=== PATIENT | male | born 1945 | race Caucasian/White ===

== ENCOUNTER 2016-12-05 22:18 | Emergency (ER) | payer OTHER ==
[~2016-12-05] VITALS: Ht 170.2 cm; Wt 89.8 kg
[~2016-12-05 22:18] MED LIST: ASPIRIN CHILDRE81 MG PO; ATORVASTATIN CA80 MG PO; GLYBURIDE5 MG PO; LISINOPRIL40 MG PO; METFORMIN500 MG PO
--- NOTE | 2016-12-05 23:03 | ED GENERAL ADULT ---
History of Present Illness General Chief Complaint: General Adult Stated Complaint: " CAN'T BREATH,SINUS VELARDE,FEEL 2 LUMPS NECK,SPO2 99" Source: patient, old records Exam Limitations: no limitations Vital Signs & Intake/Output Vital Signs & Intake/Output Vital Signs Date Time Temp Pulse Resp B/P B/P Pulse O2 O2 Flow FiO2 Mean Ox Delivery Rate 12/05 2312 Room Air 12/05 2222 97.6 73 18 168/75 99 Room Air ED Intake and Output 12/06 0000 12/05 1200 Intake Total Output Total Balance Patient 198 lb Weight Allergies Coded Allergies: codeine (Intermediate, NAUSEA 12/06/16) Reconcile Medications Aspirin (Children's Aspirin) 81 MG TAB.CHEW 1 TAB PO DAILY HEART HEALTH ( Reported) Atorvastatin Calcium (Lipitor) 80 MG TABLET 1 TAB PO DAILY CHOLESTEROL ( Reported) Doxycycline Hyclate (Vibramycin) 100 MG CAPSULE 1 CAP PO BID sinusitis Glyburide 2.5 MG TABLET 1 TAB PO BID DIABETES (Reported) Lisinopril 40 MG TABLET 1 TAB PO DAILY BP (Reported) METFORMIN HCL (Metformin) 500 MG TABLET 2 TAB PO BID DIABETES (Reported) Mometasone Furoate (Nasonex) 50 MCG SPRAY.PUMP 2 SPRAY NASB DAILY PRN sinusitis Triage Note: PT TO ED C/O SINUS CONGESTION SINCE JULY "I'VE BEEN TO 3 DOCTORS" PT STATES HE CAN'T BREATHE WHEN HE LAYS FLAT SO CAN'T SLEEP. O2 SAT 99% IN TRIAGE. PT SNIFFING CONSTANTLY. "I CAN'T BREATHE" Triage Nurses Notes Reviewed? yes HPI: Patient is a 71 year old male presents complaining of nasal congestion, feeling of swelling in his neck and difficulty breathing. Sinus congestion x 4-5 months , has been seen by his primary doctor and at the urgent care clinic. Has been on two courses of antibiotics with no significant improvement. Using a nasal spray with temporary mild improvement. This evening patient developed the symptoms of dyspnea which were new for him and prompted him to come to the emergency department for further evaluation. Head pressure and nasal congestion is severe. Denies cough, fevers, chills, chest pain. (MURIEL MCKEON,LAINEY) Past History Travel History Traveled to [place] past 21 day No Medical History Any Pertinent Medical History? see below for history Cardiovascular: hypertension, hyperlipidemia Endocrine: diabetes Surgical History Surgical History: non-contributory Psychosocial History What is your primary language Maori Tobacco Use: Quit >30 days ago ETOH Use: occasional use Illicit Drug Use: denies illicit drug use Family History Hx Contributory? No (LAINEY JOLLEY) Review of Systems Review of Systems Constitutional: Denies: chills, fever. EENTM: Reports: nasal congestion, throat swelling. Respiratory: Reports: short of breath. Denies: cough. Cardiovascular: Denies: chest pain. GI: Reports: no symptoms. Genitourinary: Reports: no symptoms. Musculoskeletal: Reports: neck pain. Denies: back pain. Skin: Reports: no symptoms. Neurological/Psychological: Reports: headache. Hematologic/Endocrine: Denies: bruising, bleeding. Immunologic/Allergic: Denies: splenectomy. (LAINEY JLOLEY) Physical Exam Physical Exam General Appearance: well developed/nourished, alert, awake, anxious Head: bilateral maxillary and frontal sinus tenderness Eyes: Bilateral: normal appearance, PERRL, EOMI. Ears, Nose, Throat: normal pharynx, hearing grossly normal, moist mucus membranes, nasal congestion Neck: normal inspection, supple, full range of motion, tenderness bilateral submandibular. No significant edema or swelling appreciable Respiratory: normal breath sounds, chest non-tender, no respiratory distress, lungs clear Cardiovascular: regular rate/rhythm Back: normal inspection, normal range of motion Extremities: normal inspection, normal capillary refill, normal range of motion Neurologic/Psych: no motor/sensory deficits, awake, alert, oriented x 3, normal gait, normal mood/affect Skin: intact, normal color, warm/dry Lymphatic: no anterior cervical savi Core Measures ACS in differential dx? Yes ASA ordered for poss ACS? No-ACS ruled out CVA/TIA Diagnosis: No Severe Sepsis Present: No Septic Shock Present: No (LAINEY JOLLEY) Progress Differential Diagnoses I considered the following diagnoses in my evaluation of the patient: Sinusitis, Contreras's angina, epiglottitis, bronchitis, pneumonia, anxiety, acute coronary syndrome, aortic dissection, carotid dissection Plan of Care: Orders Procedure Date/time Status TROPONIN LEVEL 12/05 2313 Complete CBC WITHOUT DIFFERENTIAL 12/05 2313 Complete BASIC METABOLIC PANEL 12/05 2313 Complete EKG 12/05 2313 Active Current Medications Sig/Kelton Start time Last Medication Dose Stop Time Status Admin Oxymetazoline HCl 2 SPRAY ONCE ONE 12/06 0015 UNVr 12/06 (Afrin) 12/06 0016 0016 Laboratory Tests 12/05/16 2345: Anion Gap 13, Estimated GFR 55 L, BUN/Creatinine Ratio 15.4, Glucose 177 H, Calcium 9.0, Troponin I < 0.01, CBC w Diff NO MAN DIFF REQ, RBC 4.65 L, MCV 82.1, MCH 27.9, RDW 13.5, MPV 7.6, Gran % 56.6, Lymphocytes % 22.2, Monocytes % 7.6, Eosinophils % 13.1 H, Basophils % 0.5, Absolute Granulocytes 5.2, Absolute Lymphocytes 2.0, Absolute Monocytes 0.7 H, Absolute Eosinophils 1.2, Absolute Basophils 0, PUBS MCHC 34.[address] Alcantara. 0010: Results of CT scan discussed with patient. Afrin nasal spray 2 sprays instilled in each nostril. Awaiting results of labs. Results of labs discussed with patient. Patient nontoxic appearing, lungs clear throughout, oxygen saturation 99% on room air, normal heart rate. Appears stable for discharge and outpatient follow up. (MURIEL MCKEON,LAINEY) Diagnostic Imaging: Viewed by Me: CT Scan. Discussed w/RAD: CT Scan. Radiology Impression: PATIENT: EFRAIN WALDRON PRESENT AGE: 71 PATIENT ACCOUNT NO: [id number] : 47 LOCATION: [facility] ORDERING PHYSICIAN: LAINEY MCKEON SERVICE DATE: 12/05/16 EXAM TYPE: CAT - CT NECK WO IV CONTRAST EXAMINATION: CT NECK WITHOUT CONTRAST CLINICAL INFORMATION: Feeling of submandibular fullness COMPARISON: None TECHNIQUE: Axial images obtained through the neck without IV contrast. Coronal and sagittal reformatted images are performed at CT scanner DLP: 562.95 mGy-cm FINDINGS: No mass. No lymphadenopathy. Fat planes of the neck are normal. No inflammation or fluid collections. Submandibular glands are normal and symmetric bilateral. Thyroid glands and the parotid glands are normal. No bulky lymphadenopathy. The nasopharynx, oropharynx, hypopharynx and proximal trachea are unremarkable. No prevertebral soft tissue swelling. There is vascular calcifications of the carotid arteries at the carotid artery bifurcation bilaterally. Lung apices are clear. The partially visualized intracranial structures normal. Orbits are normal. There is sinus disease with small air- fluid levels in the dependent maxillary sinuses bilateral. IMPRESSION: Normal CT of neck. Submandibular glands are symmetric and normal in size. DICTATED BY: MARTÍN COON MD DATE/TIME DICTATED:12/05/162339 IRON ERECTOR:ELMA DATE/TIME TRANSCRIBED:12/05/162339 CONFIDENTIAL, DO NOT COPY WITHOUT APPROPRIATE AUTHORIZATION. <Electronically signed in Other Vendor System> SIGNED BY: MARTÍN COON MD 12/05/162346 Initial ED EKG: normal axis, normal intervals, normal p-waves, normal QRS complex, normal sinus rhythm, no ST T wave changes (LAINEY JOLLEY) Departure Departure Time of Disposition: 51 Disposition: HOME OR SELF CARE Condition: Stable Clinical Impression Primary Impression: Maxillary sinusitis Qualifiers: Chronicity: acute Referrals: GUTIERREZ DILLON,THELMA Howe (PCP/Family) NILDA DILLON,CRISTIANE Additional Instructions: Follow up with your primary doctor or with Dr. Duran(ear, nose and throat doctor) for further evaluation. Call in the morning for appointment. Return to the ER if fevers, unable to stay hydrated or worsening of symptoms. Do not use the Afrin(oxymetazoline) for more than 2 days. Departure Forms: Customer Survey General Discharge Information Prescriptions: Current Visit Scripts Mometasone Furoate (Nasonex) 2 SPRAY NASB DAILY PRN sinusitis #1 INHAL Doxycycline Hyclate (Vibramycin) 1 CAP PO BID #14 CAP (LAINEY JOLLEY) PA/PRACTICE COORDINATOR Co-Sign Statement Statement: ED Attending supervision documentation- [X] I saw and evaluated the patient. I have also reviewed all the pertinent lab results and diagnostic results. I agree with the findings and the plan of care as documented in the PA's/PRACTICE COORDINATOR's documentation. [X] I have reviewed the ED Record and agree with the PA's/PRACTICE COORDINATOR's documentation. [] Additions or exceptions (if any) to the PAs/PRACTICE COORDINATOR's note and plan are summarized below: [] (CORNELIO DILLON,MARITZA Todd) Critical Care Note Critical Care Note Critical Care Time: non-applicable (LAINEY JOLLEY)
--- NOTE | 2016-12-05 23:47 | CT SCAN REPORT ---
EXAMINATION: CT NECK WITHOUT CONTRAST CLINICAL INFORMATION: Feeling of submandibular fullness COMPARISON: None TECHNIQUE: Axial images obtained through the neck without IV contrast. Coronal and sagittal reformatted images are performed at CT scanner DLP: 562.95 mGy-cm FINDINGS: No mass. No lymphadenopathy. Fat planes of the neck are normal. No inflammation or fluid collections. Submandibular glands are normal and symmetric bilateral. Thyroid glands and the parotid glands are normal. No bulky lymphadenopathy. The nasopharynx, oropharynx, hypopharynx and proximal trachea are unremarkable. No prevertebral soft tissue swelling. There is vascular calcifications of the carotid arteries at the carotid artery bifurcation bilaterally. Lung apices are clear. The partially visualized intracranial structures normal. Orbits are normal. There is sinus disease with small air-fluid levels in the dependent maxillary sinuses bilateral. IMPRESSION: Normal CT of neck. Submandibular glands are symmetric and normal in size.
[2016-12-05 23:56] LABS: ABSOLUTE BASOPHIL COUNT 0 /CUMM (0.0-0.2); ABSOLUTE EOSINOPHIL COUNT 1.2 /CUMM (0.0-0.7); ABSOLUTE GRANULOCYTE CT 5.2 /CUMM (1.4-6.5); ABSOLUTE MONOCYTE COUNT 0.7 /CUMM (0.10-0.60); BASOPHIL % 0.5 % (0.0-2.0); EOSINOPHIL % 13.1 % (0-5); GRANULOCYTE % 56.6 % (42.2-75.2); HEMATOCRIT 38.2 % (42-52); MEAN CORPUSCULAR HGB 27.9 PG (27.0-31.0); MEAN CORPUSCULAR VOLUME 82.1 FL (80.0-94.0); MEAN PLATELET VOLUME 7.6 FL (7.4-10.4); PLATELET COUNT 171 /CUMM (130-400); RBC DISTRIBUTION WIDTH 13.5 % (11.5-14.5); RED BLOOD CELL CT 4.65 /CUMM (4.70-6.10); WHITE BLOOD CELL COUNT 9.2 /CUMM (4.8-10.8)
[2016-12-06] MEDS ORDERED: VIBRAMYCIN100 MG PO (00:52)
[2016-12-06] MEDS ORDERED: NASONEX17 GM NASB (00:52)
[2016-12-06 00:53] VITALS: BP 185/76
== END 2016-12-06 00:56 ==
LOC: ERH 22:18
PROVIDERS: Physician Assistant
DX: J32.0 Chronic maxillary sinusitis (principal); Z87.891 Personal history of nicotine dependence; R22.1 Localized swelling, mass and lump, neck; R06.00 Dyspnea, unspecified
CPT/HCPCS: 93005; 93010